=== PATIENT | female | born 1965 | race Caucasian/White ===

== ENCOUNTER 2021-07-19 01:09 | Emergency (ER) | payer MEDICAID ==
[~2021-07-19] VITALS: Ht 167.6 cm; Wt 93.9 kg
[2021-07-19 01:20] VITALS: BP_SYST 123
[2021-07-19] MEDS ORDERED: BUPIVACAINE /PF 0.25% 30 ML VIAL INJ ONE (02:45)
[2021-07-19] MEDS ORDERED: LIDOCAINE 1% 10 MG/ML, 20 ML MDV INJ ONE (02:45)
[2021-07-19] MEDS ORDERED: TRIAMCINOLONE ACETONIDE 40 MG/ML IA ONE (02:45)
[2021-07-19] MEDS ORDERED: TRIAMCINOLONE ACETONIDE 40 MG/ML ONE (02:47)
[2021-07-19] MEDS ORDERED: LIDOCAINE 1%, 20 ML MDV 20 ML ONE (02:48)
[2021-07-19] MEDS ORDERED: NAPR-688 PO (04:30)
[2021-07-19] MEDS ORDERED: HYDR-3917 PO (04:30)
[2021-07-19 04:35] VITALS: BP_SYST 120
[2021-07-19 11:55] LABS: SOURCE/TYPE ,BODY FLUID SYNOVIAL
[2021-07-19 11:56] LABS: APPEARANCE,SPUN,BODY FLUID CLEAR (CLEAR); BF APPEARANCE UNSPUN HAZY (CLEAR); BODY FLUID COLOR PINK (LT YELLOW); BODY FLUID SOURCE/ TYPE RIGHT KNEE; BODY FLUID TOTAL VOLUME 0.5 mL; MONOCYTES,BODY FLUID 67 %; NEUTROPHIL, BODY FLUID 33 %; RBC, BODY FLUID 1233 /uL; WBC, BODY FLUID 33 /uL
== END 2021-07-19 04:35 | disposition home or self-care (01) ==
LOC: SED 01:09
DX: M25.461 Effusion, right knee (principal); Z79.899 Other long term (current) drug therapy
CPT/HCPCS: 20610; 36415; 73564; 82947; 84157; 84550; 89051 ×2; 89060; 99284; J2001; J3301

== ENCOUNTER 2021-08-30 09:19 | Emergency (ER) | payer MEDICAID ==
[~2021-08-30] VITALS: Ht 170.2 cm; Wt 90.7 kg
[~2021-08-30 09:19] MED LIST: HYDR-3917 PO; NAPR-688 PO
[2021-08-30 09:30] VITALS: BP_SYST 155
--- NOTE | 2021-08-30 09:40 | NUR ---
Patient to ER bed 8 to gown for evaluation. Side rails up. Report given to TI SANTOS.
--- NOTE | 2021-08-30 09:58 | NUR ---
assessed pt at bed side, vitals within normal limits/pt presented to the er driven by her with complaints of hypertensive urgency. pt was on hypertensive medications and stoped taking the meds per her primary pt was told to stop taking medication apx 3 weeks because she was having dizzy spell. pt in bed resting comfortably, and stable with bed lowered and locked and rails up.
[2021-08-30] MEDS ORDERED: ONDANSETRON 4 MG ODT TAB PO ONE (10:00)
--- NOTE | 2021-08-30 10:01 | NUR ---
Dr Mendez placed order for pt t [id number]
[2021-08-30 10:13] LABS: BASOPHILS % (AUTO) 0.8 % (0.0-2.0); EOSINOPHILS # (AUTO) 0.1 K/uL (0.0-0.4); EOSINOPHILS % (AUTO) 2.6 % (0.0-4.0); HEMATOCRIT 42.8 % (36-48); HEMOGLOBIN 14.2 g/dL (12.0-16.0); LYMPHOCYTES # (AUTO) 1.8 K/uL (1.0-5.5); LYMPHOCYTES % (AUTO) 32.2 % (20.5-51.5); MEAN CORPUSCULAR HEMOGLOBIN 30 pg (27-31); MEAN CORPUSCULAR HGB CONC 33 % (32-36); MEAN CORPUSCULAR VOLUME 91 fL (79.0-98.0); MONOCYTES # (AUTO) 0.4 K/uL (0.0-1.0); MONOCYTES % (AUTO) 6.6 % (1.7-9.3); NEUTROPHILS # (AUTO) 3.2 K/uL (1.8-7.7); NEUTROPHILS % (AUTO) 57.8 % (40.0-70.0); PLATELET COUNT (AUTO) 274 K/uL (130-430); RED BLOOD CELL COUNT(AUTO) 4.72 MIL/uL (4.2-6.2); RED CELL DISTRIBUTION WIDTH 14.1 % (9.0-15.0); WHITE BLOOD COUNT (AUTO) 5.5 K/uL (4.8-10.8)
[2021-08-30 10:30] LABS: CALCIUM 9.5 mg/dL (8.4-11.0); POTASSIUM 4.5 mmol/L (3.5-5.1)
[2021-08-30] MEDS ORDERED: HYDR25TA4 PO (10:42)
--- NOTE | 2021-08-30 11:04 | NUR ---
Patient given written and verbal discharge instructions and verbalizes understanding. ER Dr Nikita Mendez MD discussed with patient the results and treatment provided. Patient in stable condition. ID arm band removed. Rx of hydrochlorothiaze given. Patient denied pain, veried pharmacy with patient Opportunity for questions provided and answered. Medication side effect fact sheet provided.
[2021-08-30 11:10] VITALS: BP_SYST 154
== END 2021-08-30 11:10 | disposition home or self-care (01) ==
LOC: SED 09:19
DX: I16.0 Hypertensive urgency (principal); Z79.899 Other long term (current) drug therapy
CPT/HCPCS: 36415; 80048; 85025; 93005; 99284; Q0162

== ENCOUNTER 2023-02-17 16:36 | Emergency (ER) | payer MEDICAID ==
[~2023-02-17] VITALS: Ht 172.7 cm; Wt 108.9 kg
[2023-02-17 16:36] VITALS: BP_SYST 124; PULSE 86; RESP 16; TEMP 97.2; O2SAT 98
[~2023-02-17 16:36] MED LIST changes: +HYDR25TA4 PO
[2023-02-17] MEDS ORDERED: NABU-140 PO (17:46)
== END 2023-02-17 18:02 | disposition home or self-care (01) ==
LOC: SED 16:36
DX: S90.32XA Contusion of left foot, initial encounter (principal); Z79.899 Other long term (current) drug therapy; W20.8XXA Other cause of strike by thrown, projected or falling object, initial encounter; Y93.89 Activity, other specified; Y92.89 Other specified places as the place of occurrence of the external cause; Y99.8 Other external cause status
CPT/HCPCS: 99283

== ENCOUNTER 2023-05-10 16:01 | Inpatient (IN) | payer MEDICAID ==
[~2023-05-10] VITALS: Ht 167.6 cm; Wt 90.7 kg
[~2023-05-10 16:01] MED LIST changes: +NABU-140 PO
[2023-05-10 16:11] VITALS: BP_SYST 134; PULSE 93; RESP 15; TEMP 98.9; O2SAT 97
[2023-05-10 17:53] LABS: BASOPHILS # (AUTO) 0.1 K/uL (0.0-0.2); BASOPHILS % (AUTO) 0.8 % (0.0-2.0); EOSINOPHILS # (AUTO) 0.2 K/uL (0.0-0.4); EOSINOPHILS % (AUTO) 3.1 % (0.0-4.0); HEMATOCRIT 39.6 % (36-48); HEMOGLOBIN 13.8 g/dL (12.0-16.0); LYMPHOCYTES # (AUTO) 2.2 K/uL (1.0-5.5); LYMPHOCYTES % (AUTO) 28.5 % (20.5-51.5); MEAN CORPUSCULAR HEMOGLOBIN 32 pg (27-31); MEAN CORPUSCULAR HGB CONC 35 % (32-36); MEAN CORPUSCULAR VOLUME 92 fL (79.0-98.0); MONOCYTES # (AUTO) 0.5 K/uL (0.0-1.0); NEUTROPHILS # (AUTO) 4.7 K/uL (1.8-7.7); NEUTROPHILS % (AUTO) 61.6 % (40.0-70.0); PLATELET COUNT (AUTO) 327 K/uL (130-430); RED BLOOD CELL COUNT(AUTO) 4.33 MIL/uL (4.2-6.2); RED CELL DISTRIBUTION WIDTH 13.9 % (9.0-15.0); WHITE BLOOD COUNT (AUTO) 7.6 K/uL (4.8-10.8)
[2023-05-10 18:25] LABS: ANION GAP 7 (5-15); CALCIUM 8.8 mg/dL (8.4-11.0); CARBON DIOXIDE 28 mmol/L (23-29); CHLORIDE 105 mmol/L (98-107); CREATININE 1.23 mg/dL (0.55-1.30); GFR AFRICAN AMERICAN 58 mL/min (>90); GLUCOSE 104 mg/dL (74-106); POTASSIUM 4.3 mmol/L (3.5-5.1); SODIUM SERUM 140 mmol/L (136-145); UREA NITROGEN, BLOOD 19 mg/dL (8-21)
[2023-05-10 18:27] LABS: GFR NON AFRICAN-AMERICAN 48 mL/min (>90)
[2023-05-10] MEDS ORDERED: NOR10 PO (20:08)
[2023-05-10] MEDS ORDERED: CLON0.1T PO (20:08)
[2023-05-10] MEDS ORDERED: LIP20 PO (20:08)
[2023-05-10] MEDS ORDERED: PARO-148 PO (20:08)
[2023-05-10] MEDS ORDERED: PILO5TAB11 PO (20:08)
[2023-05-10] MEDS ORDERED: LOSA-415 PO (20:08)
[2023-05-10] MEDS ORDERED: ERGO1250 PO (20:08)
[2023-05-11] MEDS ORDERED: METOPROLOL SUCCINATE 25 MG TAB.SR.24H (TOPROL XL) PO ONE (12:00)
[2023-05-11 12:30] VITALS: BP_SYST 83; PULSE 80; RESP 18; TEMP 98; O2SAT 96
[2023-05-11 13:50] VITALS: BP_SYST 83; PULSE 80; RESP 20; TEMP 98
[2023-05-11 15:07] VITALS: BP_SYST 104; PULSE 83; RESP 16; TEMP 97.6; O2SAT 99
[2023-05-11] MEDS ORDERED: cloNIDine HCL 0.1 MG TABLET PO PRN (18:00)
[2023-05-11] MEDS ORDERED: HYDROcodone/ACETAMIN 5-325 MG TAB (NORCO/ VICODIN) PO PRN (18:30)
[2023-05-11] MEDS ORDERED: NALOXONE HCL 0.4 MG/ML AMP (NARCAN) IVP PRN (18:30)
[2023-05-11 20:01] VITALS: BP_SYST 128; PULSE 78; PULSE 81; RESP 17; RESP 18; TEMP 97.3; TEMP 97.6; O2SAT 98; O2SAT 99
[2023-05-11] MEDS ORDERED: PARoxetine HCL 20 MG TABLET PO ONE (23:00)
[2023-05-11] MEDS ORDERED: traMADol HCL HCL 50 MG TABLET (ULTRAM) PO PRN (23:00)
[2023-05-12 00:15] VITALS: BP_SYST 122; PULSE 84; RESP 16; TEMP 97.6; O2SAT 98
[2023-05-12 06:39] LABS: CALCIUM 9.1 mg/dL (8.4-11.0); CREATININE 0.8 mg/dL (0.55-1.30); POTASSIUM 3.6 mmol/L (3.5-5.1)
[2023-05-12 06:45] LABS: BASOPHILS # (AUTO) 0.1 K/uL (0.0-0.2); BASOPHILS % (AUTO) 0.8 % (0.0-2.0); EOSINOPHILS # (AUTO) 0.3 K/uL (0.0-0.4); EOSINOPHILS % (AUTO) 4.4 % (0.0-4.0); HEMATOCRIT 38.6 % (36-48); HEMOGLOBIN 13.2 g/dL (12.0-16.0); LYMPHOCYTES # (AUTO) 2.6 K/uL (1.0-5.5); LYMPHOCYTES % (AUTO) 40.4 % (20.5-51.5); MEAN CORPUSCULAR HEMOGLOBIN 31 pg (27-31); MEAN CORPUSCULAR HGB CONC 34 % (32-36); MEAN CORPUSCULAR VOLUME 91 fL (79.0-98.0); MONOCYTES # (AUTO) 0.5 K/uL (0.0-1.0); MONOCYTES % (AUTO) 7.2 % (1.7-9.3); NEUTROPHILS % (AUTO) 47.2 % (40.0-70.0); PLATELET COUNT (AUTO) 278 K/uL (130-430); RED BLOOD CELL COUNT(AUTO) 4.25 MIL/uL (4.2-6.2); RED CELL DISTRIBUTION WIDTH 13.9 % (9.0-15.0); WHITE BLOOD COUNT (AUTO) 6.3 K/uL (4.8-10.8)
[2023-05-12 06:49] VITALS: BP_SYST 142; PULSE 81; RESP 17; TEMP 97.9; O2SAT 98
[2023-05-12 08:00] VITALS: BP_SYST 107; PULSE 81; RESP 18; TEMP 97.5; O2SAT 97
[2023-05-12] MEDS ORDERED: METOPROLOL SUCCINATE 25 MG TAB.SR.24H (TOPROL XL) PO SCH (09:00)
[2023-05-12] MEDS ORDERED: PARoxetine HCL 20 MG TABLET PO SCH (09:00)
[2023-05-12 11:36] LABS: BASOPHILS # (AUTO) 0.1 K/uL (0.0-0.2); EOSINOPHILS # (AUTO) 0.3 K/uL (0.0-0.4); EOSINOPHILS % (AUTO) 4.6 % (0.0-4.0); HEMATOCRIT 38.1 % (36-48); HEMOGLOBIN 13.2 g/dL (12.0-16.0); LYMPHOCYTES # (AUTO) 1.6 K/uL (1.0-5.5); LYMPHOCYTES % (AUTO) 26.4 % (20.5-51.5); MEAN CORPUSCULAR HEMOGLOBIN 31 pg (27-31); MEAN CORPUSCULAR HGB CONC 35 % (32-36); MEAN CORPUSCULAR VOLUME 90 fL (79.0-98.0); MONOCYTES # (AUTO) 0.4 K/uL (0.0-1.0); NEUTROPHILS # (AUTO) 3.8 K/uL (1.8-7.7); PLATELET COUNT (AUTO) 290 K/uL (130-430); RED BLOOD CELL COUNT(AUTO) 4.21 MIL/uL (4.2-6.2); RED CELL DISTRIBUTION WIDTH 13.5 % (9.0-15.0); WHITE BLOOD COUNT (AUTO) 6.2 K/uL (4.8-10.8)
[2023-05-12 12:52] VITALS: BP_SYST 117; PULSE 82; RESP 17; TEMP 97.6; O2SAT 97
[2023-05-12 15:55] VITALS: BP_SYST 115; PULSE 85; RESP 18; TEMP 97.8; O2SAT 97
[2023-05-12 16:13] VITALS: BP_SYST 110; PULSE 80; RESP 18; TEMP 97.4; O2SAT 98
== END 2023-05-12 17:25 | disposition home or self-care (01) | DRG 48 ==
LOC: SED 16:01 → STU 18:53
PROVIDERS: ADMIT Specialist; ATTEND Specialist
DX: M54.12 Radiculopathy, cervical region (principal); I24.89 Other forms of acute ischemic heart disease; E78.5 Hyperlipidemia, unspecified; Z20.822 Contact with and (suspected) exposure to COVID-19; I25.10 Atherosclerotic heart disease of native coronary artery without angina pectoris; Z79.899 Other long term (current) drug therapy; Z88.2 Allergy status to sulfonamides; Z88.8 Allergy status to other drugs, medicaments and biological substances; Z79.891 Long term (current) use of opiate analgesic
CPT/HCPCS: 36415; 70450-TC; 71045; 76376; 80048; 84484; 85025; 85651-TC; 93005; 93306; 99285; G0378